=== PATIENT | female | born 1955 | race Two or more races ===

== ENCOUNTER 2024-02-01 15:11 | Inpatient (IN) | payer MEDICARE ==
[~2024-02-01] VITALS: Ht 162.6 cm; Wt 59.0 kg
[2024-02-01 15:52] LABS: BASOPHILS % (AUTO) 0.8 % (0.0-2.0); EOSINOPHILS # (AUTO) 0.3 K/uL (0.0-0.7); EOSINOPHILS % (AUTO) 5.5 % (0.0-6.0); HEMATOCRIT 37 % (33-45); HEMOGLOBIN 12.5 g/dL (11.5-14.8); LYMPHOCYTES # (AUTO) 1.7 K/uL (0.8-4.8); LYMPHOCYTES % (AUTO) 35.9 % (20.0-44.0); MEAN CORPUSCULAR HEMOGLOBIN 31 PG (26.0-33.0); MEAN CORPUSCULAR HGB CONC 34 g/dl (31.0-36.0); MEAN CORPUSCULAR VOLUME 92 fL (82-100); MONOCYTES # (AUTO) 0.5 K/uL (0.1-1.30); MONOCYTES % (AUTO) 10.2 % (2.0-12.0); NEUTROPHILS # (AUTO) 2.2 K/uL (1.8-8.9); NEUTROPHILS % (AUTO) 47.6 % (43.0-81.0); PLATELET COUNT (AUTO) 209 K/uL (150-450); RED BLOOD CELL COUNT(AUTO) 4.02 MIL/uL (4.0-5.2); RED CELL DISTRIBUTION WIDTH 13.6 % (11.5-15.0); WHITE BLOOD COUNT (AUTO) 4.7 K/uL (4.3-11.0)
[2024-02-01 16:01] LABS: CALCIUM, SERUM 8.4 mg/dL (8.5-10.1); CARBON DIOXIDE 28 mmol/L (21-32); CHLORIDE 105 mmol/L (98-107); CREATININE 0.9 mg/dL (0.6-1.3); GLUCOSE 86 mg/dL (74-106); POTASSIUM 3.6 mmol/L (3.5-5.1); SODIUM SERUM 138 mmol/L (136-145); UREA NITROGEN, BLOOD 11 mg/dL (7-18)
[2024-02-01 16:17] LABS: ALANINE AMINOTRANSFERASE 17 U/L (12-78); ALBUMIN 3.4 g/dL (3.4-5.0); ALKALINE PHOSPHATASE 64 U/L (46-116); ASPARTATE AMINOTRANSFERASE 14 U/L (15-37); BILIRUBIN,DIRECT 0.1 mg/dL (0.0-0.2); BILIRUBIN,TOTAL 0.2 mg/dL (0.2-1.0); NT-PRO BNP 307 pg/mL (0-125); TOTAL PROTEIN, SERUM 6.8 g/dL (6.4-8.2)
[2024-02-01] MEDS ORDERED: ASPIRIN 325 MG TABLET ONE (16:29)
[2024-02-01] MEDS: ASPIRIN 325 MG TABLET PO ONE (16:32)
[2024-02-01] MEDS ORDERED: HYDR2TAB4 PO (17:00)
[2024-02-01] MEDS ORDERED: BUTA1CAP42 PO (17:00)
[2024-02-01] MEDS ORDERED: AMIT50TA17 PO (17:00)
[2024-02-01] MEDS ORDERED: ESTR0.623 PO (17:00)
[2024-02-01 20:00] VITALS: BP 133/70; TEMP 97.7; O2SAT 98
[2024-02-01] MEDS ORDERED: BLOOD SUGAR DIAGNOSTIC 1 EACH STRIP IN SCH (22:00)
[2024-02-01] MEDS ORDERED: AMITRIPTYLINE HCL 50 MG TABLET PO SCH (22:00)
[2024-02-01] MEDS ORDERED: SIMVASTATIN 40 MG TABLET PO SCH (22:00)
[2024-02-01] MEDS: ZOLPIDEM TARTRATE 10 MG TABLET PO PRN (22:27)
[2024-02-01] MEDS: SIMVASTATIN 20 MG TABLET ONE (22:49)
[2024-02-01] MEDS: AMITRIPTYLINE HCL 25 MG TABLET ONE (22:49)
[2024-02-01] MEDS: AMITRIPTYLINE HCL 50 MG TABLET PO SCH (22:50)
[2024-02-01] MEDS: SIMVASTATIN 40 MG TABLET PO SCH (22:51)
[2024-02-01] MEDS ORDERED: ACETAMINOPHEN 650 MG/20.3 ML UDC NG PRN (23:00)
[2024-02-01] MEDS: BLOOD SUGAR DIAGNOSTIC 1 EACH STRIP IN SCH (23:02)
[2024-02-02] VITALS (7 sets, daily range): BP systolic 119–136; BP diastolic 58–72; TEMP 97–98.8; O2SAT 97–99
[2024-02-02] MEDS ORDERED: ASPIRIN 81 MG TAB.CHEW PO SCH (09:00)
[2024-02-02] MEDS ORDERED: ESTROGENS,CONJUGATED 0.625 MG TABLET PO SCH ×3 (09:00)
[2024-02-02] MEDS: ASPIRIN 81 MG TAB.CHEW PO SCH (09:28)
[2024-02-02] MEDS ORDERED: IOHEXOL-350 100 ML VIAL IV ONE (11:36)
[2024-02-02] MEDS ORDERED: CT SWABBABLE VALVE TRANS SET 1 EA INFUS.SET MC ONE (11:36)
[2024-02-02] MEDS ORDERED: IV NS 0.9% 250 ML IV ONE (11:37)
[2024-02-02] MEDS: BUTALB/APAP/CAFFEINE 1 EACH TABLET PO PRN (12:22)
[2024-02-02] MEDS ORDERED: HYDROMORPHONE HCL 2 MG TABLET PO SCH (13:00)
[2024-02-02] MEDS: HYDROMORPHONE HCL 2 MG TABLET PO SCH (13:00)
[2024-02-02 18:39] LABS: THYROID STIMULATING HORMONE 0.5 uIU/mL (0.358-3.74)
[2024-02-02] MEDS: AMITRIPTYLINE HCL 25 MG TABLET PO SCH (22:07)
[2024-02-02] MEDS: SIMVASTATIN 20 MG TABLET PO SCH (22:07)
[2024-02-03] VITALS: BP 98/78; TEMP 98.5; O2SAT 98
[2024-02-03 04:00] VITALS: BP 100/70; TEMP 98.6; O2SAT 97
[2024-02-03 06:49] LABS: BASOPHILS % (AUTO) 0.6 % (0.0-2.0); EOSINOPHILS # (AUTO) 0.2 K/uL (0.0-0.7); EOSINOPHILS % (AUTO) 4.7 % (0.0-6.0); HEMATOCRIT 38 % (33-45); LYMPHOCYTES # (AUTO) 2.2 K/uL (0.8-4.8); LYMPHOCYTES % (AUTO) 46.3 % (20.0-44.0); MEAN CORPUSCULAR HEMOGLOBIN 31 PG (26.0-33.0); MEAN CORPUSCULAR HGB CONC 34 g/dl (31.0-36.0); MEAN CORPUSCULAR VOLUME 91 fL (82-100); MONOCYTES # (AUTO) 0.4 K/uL (0.1-1.30); MONOCYTES % (AUTO) 8.5 % (2.0-12.0); NEUTROPHILS # (AUTO) 1.9 K/uL (1.8-8.9); NEUTROPHILS % (AUTO) 39.9 % (43.0-81.0); PLATELET COUNT (AUTO) 204 K/uL (150-450); RED BLOOD CELL COUNT(AUTO) 4.19 MIL/uL (4.0-5.2); RED CELL DISTRIBUTION WIDTH 13.2 % (11.5-15.0); WHITE BLOOD COUNT (AUTO) 4.7 K/uL (4.3-11.0)
[2024-02-03 07:01] LABS: CALCIUM, SERUM 8.7 mg/dL (8.5-10.1); CREATININE 0.8 mg/dL (0.6-1.3); POTASSIUM 3.2 mmol/L (3.5-5.1)
[2024-02-03 07:37] LABS: THYROID STIMULATING HORMONE 0.73 uIU/mL (0.358-3.74)
[2024-02-03 08:00] VITALS: BP 134/63; TEMP 97.5; O2SAT 99
[2024-02-03] MEDS: POTASSIUM CHLORIDE 20 MEQ TAB.PRT.SR PO ONE (10:50)
[2024-02-03] MEDS ORDERED: SIMV-46 PO (11:10)
[2024-02-03] MEDS ORDERED: ASPI-1169 PO (11:10)
[2024-02-05 01:10] LABS: FOLIC ACID 3.4 ng/mL (>3.0)
== END 2024-02-03 12:55 | disposition home or self-care (01) | DRG 65 ==
LOC: ER 15:21 → EDBD 19:10 → TELE1 19:10
PROVIDERS: ADMIT Nurse Practitioner Acute Care; ATTEND Nurse Practitioner Acute Care
DX: I63.9 Cerebral infarction, unspecified (principal); G45.9 Transient cerebral ischemic attack, unspecified; G43.109 Migraine with aura, not intractable, without status migrainosus; M54.12 Radiculopathy, cervical region; M48.02 Spinal stenosis, cervical region; Z98.1 Arthrodesis status; F41.9 Anxiety disorder, unspecified; H53.8 Other visual disturbances; R29.701 NIHSS score 1; Z88.1 Allergy status to other antibiotic agents; G89.29 Other chronic pain
CPT/HCPCS: 36415; 70450-TC; 70496-TC; 70498-TC; 70551-TC; 71045-TC; 80048-TC; 80061-TC; 80076-TC; 82607-TC; 82962-TC; 83880; 83921; 84443-TC; 84484-TC; 85025-TC; 93307-TC; 93880-TC; 97110-TC; 97112-TC; 97116-TC; 97530-TC; 97535-TC; G0378; J7050; Q9967